=== PATIENT | male | born 1960 | race Caucasian/White ===

== ENCOUNTER 2022-12-23 06:02 | Day surgery (SDC) | payer OTHER, SELFPAY ==
--- NOTE | 2022-12-22 09:49 | P.CONAN_ITS ---
Documented by User: Meghna Silvestre NP 12/22/22 09:49 HPI - Anesthesia Eval Consult details Narrative: 62yo M for Upper Endoscopy and Colonoscopy [facility] Past Medical History Medical History Inguinal hernia Hyperlipemia GERD (gastroesophageal reflux disease) Asthma BPH (benign prostatic hyperplasia) History of anxiety Surgical History Surgical History S/P hernia surgery History of cholecystectomy History of esophagogastroduodenoscopy (EGD) Hx of colonoscopy Social History Social History Patient Tobacco Use Status: Never used Tobacco Are you DNR?: No Advance Directives: No Advance Directives Information Provided: Yes Nutrition Risks: No Nutritional Risk Meds Allergies Allergy/AdvReac Type Severity Reaction Status Date / Time No Known Allergies Allergy Verified 12/23/22 06:22 Home Medications Medication Instructions Recorded Confirmed Last Taken Type No Known Home Meds 12/22/22 12/22/22 Unknown History Exam Exam Date and Time: December 22, 2022 0949 Assessment and Plan Assessment Anesthesia Assessment: Chart Reviewed Documented by User: Delfino Louie MD 12/23/22 16:24 [facility] Past Medical History Medical History Inguinal hernia Hyperlipemia GERD (gastroesophageal reflux disease) Asthma BPH (benign prostatic hyperplasia) History of anxiety Functional capacity: independent ambulation Family History Family history of problems with anesthesia: No Surgical History Surgical History S/P hernia surgery History of cholecystectomy History of esophagogastroduodenoscopy (EGD) Hx of colonoscopy History of Problems with Anesthesia: No Social History Social History Patient Tobacco Use Status: Never used Tobacco Are you DNR?: No Advance Directives: No Advance Directives Information Provided: Yes Nutrition Risks: No Nutritional Risk Meds Allergies Allergy/AdvReac Type Severity Reaction Status Date / Time No Known Allergies Allergy Verified 12/23/22 06:22 Home Medications Medication Instructions Recorded Confirmed Last Taken Type No Known Home Meds 12/22/22 12/22/22 Unknown History Exam Airway Mallampati Class: IV Loose/Missing/Broken Teeth: Yes Assessment and Plan Assessment Anesthesia Assessment: Anesthesia Plan Discussed Final Anesthetic Review Family History of Problems with Anesthesia: No History of Problems with Anesthesia: No NPO: Yes ASA Class: II Final Preanesthetic Review: Meds/Allgs Chart Reviewed, Consent Obtained/Reviewed and Anes Risks/Benef Reviewed Patient Risk: Intermediate Procedure Risk: Intermediate Anesthetic Plan Anesthetic Plan: MAC: and Agree w/ Assess. and Plan Disposition: Standard PACU
[2022-12-23 06:00] VITALS: BMI 26.8
[2022-12-23] MEDS: Lactated Ringers 1,000 ML 100 ML IVCONT (06:29)
[2022-12-23 06:38] VITALS: BP 156/92; PULSE 78; RESP 18; TEMP 36.4; O2SAT 99
[2022-12-23 08:51] VITALS: BP 119/73; PULSE 87; RESP 15; TEMP 36.6; O2SAT 98
[2022-12-23 09:06] VITALS: BP 104/71; PULSE 75; RESP 16; TEMP 36.6; O2SAT 99
--- NOTE | 2022-12-23 09:33 | P.BOP_ITS ---
Brief Operative Note Date of Service: 12/23/22 Pre-op diagnosis: se H&P no change Post-op diagnosis: same Surgeon: Jhoan Méndez Anesthesia: MAC Was an Bottling Machine Operator used for this Procedure?: No Estimated blood loss (mL): 0 Pathology: other Disposition: PACU
--- NOTE | 2023-01-16 21:42 | OP_ITS ---
DATE OF SERVICE: 12/23/2022 SURGEON: Jhoan Méndez MD INDICATIONS: 1. Zavala's esophagus. 2. Family history of colon cancer. PREOPERATIVE DIAGNOSIS: POSTOPERATIVE DIAGNOSIS: PROCEDURE PERFORMED: ESTIMATED BLOOD LOSS: COMPLICATIONS: ANESTHESIA: Monitored anesthesia care. ASSISTANTS: SPECIMENS: PROCEDURES PERFORMED: 1. Upper endoscopy with biopsy. 2. Colonoscopy to the terminal ileum with biopsy. DESCRIPTION OF PROCEDURE: A history and physical were performed. The risks and benefits of the procedure were explained to the patient. Informed consent was obtained. The patient was placed in the left lateral decubitus position. The Olympus video gastroscope was introduced into the esophagus, stomach, and duodenum. Examination was performed, and the scope was removed. He was repositioned for colonoscopy. A digital rectal exam was performed and was found to be normal. The Olympus pediatric video colonoscope was introduced into the rectum and advanced to the cecum. The cecum was identified by transillumination, palpation, and identification of ileocecal valve. Examination was performed, and the scope was removed. He tolerated both procedures well and was taken to recovery in stable condition. FINDINGS: Upper endoscopy: 1. Esophagus. The esophagus was normal. There was no visible evidence of Zavala esophagus. There was no esophagitis. 2. Stomach. The stomach showed no evidence of masses, ulcers, or polyps. Antral biopsies were obtained for histopathology and H. pylori evaluation. 3. Duodenum, the bulb and second portion were normal. Colonoscopy: The terminal ileum was normal. The visualized colonic mucosa was within normal limits. There was a less than 5 mm sessile polyp at 40 cm, which was removed with biopsy forceps. No other polyps were seen. The quality of the prep was good. Retroflexed examination was normal. IMPRESSION: 1. Normal upper endoscopy. 2. Colon polyp. RECOMMENDATIONS: 1. Follow up the biopsy results. 2. Repeat colonoscopy is recommended for 5 years because of family history. Consider upper endoscopy at that time because of microscopic changes of Zavala esophagus, on previous biopsies. MD GRETA Marin/DENNISEL / [phone]
== END 2022-12-23 09:41 | disposition home or self-care (01) ==
PROVIDERS: PCP Internal Medicine; Visit Provider Internal Medicine Gastroenterology
PROC: (CPT 45380; principal; 2022-12-23 07:30)
DX: Z12.11 Encounter for screening for malignant neoplasm of colon (principal); Z80.0 Family history of malignant neoplasm of digestive organs; K63.5 Polyp of colon; K22.70 Barrett's esophagus without dysplasia; K29.50 Unspecified chronic gastritis without bleeding; J45.909 Unspecified asthma, uncomplicated; N40.0 Benign prostatic hyperplasia without lower urinary tract symptoms; Z98.890 Other specified postprocedural states; Z79.899 Other long term (current) drug therapy
CPT/HCPCS: 45380; 43239; 88305; 88342; J3010